=== PATIENT | male | born 1965 | race Caucasian/White ===

== ENCOUNTER 2024-05-29 13:19 | Inpatient (IN) | payer MEDICAID ==
[2024-05-29] VITALS (8 sets, daily range): BP systolic 122–141; BP diastolic 83–95; TEMP 97.6–97.7; O2SAT 95–100
[~2024-05-29] VITALS: Ht 175.3 cm; Wt 68.9 kg
[2024-05-29] MEDS ORDERED: IPRATROPIUM NEB FS 0.5 MG/2.5 ML AMPUL.NEB ONE (13:31)
[2024-05-29] MEDS ORDERED: ALBUTEROL FS 2.5 MG/3 ML VIAL.NEB ONE (13:31)
[2024-05-29] MEDS ORDERED: methylPREDNISolone SOD SUCC 125 MG/2ML VIAL ONE (13:33)
[2024-05-29] MEDS: methylPREDNISolone SOD SUCC 125 MG/2ML VIAL IV ONE (13:35)
[2024-05-29] MEDS: ALBUTEROL FS 2.5 MG/3 ML VIAL.NEB CONTNEB ONE (13:36)
[2024-05-29] MEDS: IPRATROPIUM NEB FS 0.5 MG/2.5 ML AMPUL.NEB NEB ONE (13:36)
[2024-05-29 13:48] LABS: BASOPHILS % (AUTO) 0.6 % (0.0-2.0); EOSINOPHILS # (AUTO) 0.3 K/uL (0.0-0.7); EOSINOPHILS % (AUTO) 3.3 % (0.0-6.0); HEMATOCRIT 41 % (39-51); HEMOGLOBIN 13.8 g/dL (13.5-17.5); LYMPHOCYTES # (AUTO) 0.4 K/uL (0.8-4.8); LYMPHOCYTES % (AUTO) 4.5 % (20.0-44.0); MEAN CORPUSCULAR HEMOGLOBIN 31 PG (26.0-33.0); MEAN CORPUSCULAR HGB CONC 34 g/dl (31.0-36.0); MEAN CORPUSCULAR VOLUME 90 fL (80-96); MONOCYTES # (AUTO) 0.8 K/uL (0.1-1.30); MONOCYTES % (AUTO) 9.6 % (2.0-12.0); NEUTROPHILS # (AUTO) 7.1 K/uL (1.8-8.9); PLATELET COUNT (AUTO) 185 K/uL (150-450); RED CELL DISTRIBUTION WIDTH 17.6 % (11.5-15.0); WHITE BLOOD COUNT (AUTO) 8.7 K/uL (4.3-11.0)
[2024-05-29 13:54] LABS: CALCIUM, SERUM 9.1 mg/dL (8.5-10.1); CREATININE 1.3 mg/dL (0.6-1.3); POTASSIUM 4.2 mmol/L (3.5-5.1)
[2024-05-29] MEDS: HYDROMORPHONE 1 MG/1 ML DISP.SYRIN IV ONE (15:00)
[2024-05-29] MEDS: FUROSEMIDE 40 MG/4 ML VIAL IV ONE (15:00)
[2024-05-29] MEDS ORDERED: LORAZEPAM 0.5 MG TABLET ONE (15:01)
[2024-05-29] MEDS: LORAZEPAM 1 MG TABLET PO ONE (15:02)
[2024-05-29] MEDS ORDERED: HYDR4TAB57 PO (15:39)
[2024-05-29] MEDS ORDERED: METO50TA16 PO (15:39)
[2024-05-29] MEDS ORDERED: THC GUMMIES PO (15:39)
[2024-05-29] MEDS ORDERED: ATOR20TA PO (15:39)
[2024-05-29] MEDS ORDERED: TRAZ-252 PO (15:39)
[2024-05-29] MEDS ORDERED: ONDA4TAB11 PO (15:39)
[2024-05-29] MEDS ORDERED: ACET650T10 PO (15:39)
[2024-05-29] MEDS ORDERED: AMIO400T5 PO (15:39)
[2024-05-29] MEDS ORDERED: ALBU18HF2 IH (15:39)
[2024-05-29] MEDS ORDERED: FURO-144 PO (15:39)
[2024-05-29] MEDS ORDERED: LEVALBUTEROL HCL NEB 1.25 MG/0.5 ML VIAL.NEB NEB PRN (18:00)
[2024-05-29] MEDS ORDERED: ONDANSETRON HCL/PF 4 MG/2 ML VIAL IVP PRN (18:00)
[2024-05-29] MEDS ORDERED: ALBUTEROL SULFATE 8 GM HFA.AER.AD IH PRN (18:00)
[2024-05-29] MEDS: METOPROLOL TARTRATE 50 MG TABLET PO SCH (18:01)
[2024-05-29] MEDS: AMIODARONE HCL 200 MG TABLET PO SCH (18:01)
[2024-05-29] MEDS: HYDROMORPHONE HCL 2 MG TABLET PO PRN (18:02)
[2024-05-29] MEDS: ENOXAPARIN SODIUM 40 MG/0.4 ML DISP.SYRIN SQ SCH (18:06)
[2024-05-29] MEDS: IPRATROPIUM NEB FS 0.5 MG/2.5 ML AMPUL.NEB NEB SCH (20:27)
[2024-05-29] MEDS: methylPREDNISolone SOD SUCC 40 MG/ML VIAL IV SCH (21:21)
[2024-05-29] MEDS: ATORVASTATIN 10 MG TABLET PO SCH (21:22)
[2024-05-29] MEDS: TRAZODONE 50 MG TABLET PO SCH (21:22)
[2024-05-30] VITALS (19 sets, daily range): BP systolic 101–134; BP diastolic 43–81; TEMP 97.7–98.9; O2SAT 94–100
[2024-05-30] MEDS: ACETAMINOPHEN 325 MG TABLET PO PRN (01:27)
[2024-05-30] MEDS: ONDANSETRON 4 MG TAB.RAPDIS PO PRN (01:30)
[2024-05-30 07:02] LABS: HEMATOCRIT 38 % (39-51); HEMOGLOBIN 12.8 g/dL (13.5-17.5); LYMPHOCYTES # (AUTO) 0.2 K/uL (0.8-4.8); LYMPHOCYTES % (AUTO) 2.9 % (20.0-44.0); MEAN CORPUSCULAR HEMOGLOBIN 31 PG (26.0-33.0); MEAN CORPUSCULAR HGB CONC 34 g/dl (31.0-36.0); MEAN CORPUSCULAR VOLUME 90 fL (80-96); MONOCYTES # (AUTO) 0.2 K/uL (0.1-1.30); NEUTROPHILS # (AUTO) 7.2 K/uL (1.8-8.9); NEUTROPHILS % (AUTO) 94.1 % (43.0-81.0); PLATELET COUNT (AUTO) 187 K/uL (150-450); RED BLOOD CELL COUNT(AUTO) 4.17 MIL/uL (4.5-6.0); RED CELL DISTRIBUTION WIDTH 17.3 % (11.5-15.0); WHITE BLOOD COUNT (AUTO) 7.6 K/uL (4.3-11.0)
[2024-05-30 07:36] LABS: CALCIUM, SERUM 8.9 mg/dL (8.5-10.1); CREATININE 1.6 mg/dL (0.6-1.3); MAGNESIUM 2.1 mg/dL (1.8-2.4); PHOSPHORUS 4.9 mg/dL (2.5-4.9); POTASSIUM 4.5 mmol/L (3.5-5.1)
[2024-05-30 09:38] LABS: CHOLESTEROL 165 mg/dL (<200); HDL CHOLESTEROL 68 mg/dL (40-60); LDL 84 mg/dL (0-99); TRIGLYCERIDES 64 mg/dL (30-150)
[2024-05-30] MEDS: POTASSIUM CHLORIDE 20 MEQ TAB.PRT.SR PO SCH (10:21)
[2024-05-30] MEDS: FUROSEMIDE 40 MG/4 ML VIAL IV SCH (10:21)
[2024-05-30] MEDS: APIXABAN 5 MG TABLET PO SCH (10:22)
[2024-05-30] MEDS: CALCIUM CARBONATE 500 MG TAB.CHEW PO SCH (14:28)
[2024-05-30] MEDS: LEVALBUTEROL HCL NEB 1.25 MG/0.5 ML VIAL.NEB NEB SCH (14:40)
[2024-05-30] MEDS: LORAZEPAM 1 MG TABLET PO PRN (15:16)
[2024-05-31] VITALS (21 sets, daily range): BP systolic 104–138; BP diastolic 69–105; TEMP 97.7–98.4; O2SAT 92–100
[2024-05-31 06:20] LABS: BASOPHILS % (AUTO) 0.1 % (0.0-2.0); HEMATOCRIT 38 % (39-51); HEMOGLOBIN 12.7 g/dL (13.5-17.5); LYMPHOCYTES # (AUTO) 0.3 K/uL (0.8-4.8); LYMPHOCYTES % (AUTO) 2.4 % (20.0-44.0); MEAN CORPUSCULAR HEMOGLOBIN 30 PG (26.0-33.0); MEAN CORPUSCULAR HGB CONC 33 g/dl (31.0-36.0); MEAN CORPUSCULAR VOLUME 90 fL (80-96); MONOCYTES # (AUTO) 0.8 K/uL (0.1-1.30); NEUTROPHILS # (AUTO) 12.9 K/uL (1.8-8.9); NEUTROPHILS % (AUTO) 91.5 % (43.0-81.0); PLATELET COUNT (AUTO) 187 K/uL (150-450); RED BLOOD CELL COUNT(AUTO) 4.24 MIL/uL (4.5-6.0); RED CELL DISTRIBUTION WIDTH 17.9 % (11.5-15.0); WHITE BLOOD COUNT (AUTO) 14.1 K/uL (4.3-11.0)
[2024-05-31 06:39] LABS: ALBUMIN 3.1 g/dL (3.4-5.0); BILIRUBIN,TOTAL 0.8 mg/dL (0.2-1.0); CALCIUM, SERUM 9.6 mg/dL (8.5-10.1); CREATININE 1.5 mg/dL (0.6-1.3); MAGNESIUM 2.6 mg/dL (1.8-2.4); PHOSPHORUS 4.9 mg/dL (2.5-4.9); POTASSIUM 4.4 mmol/L (3.5-5.1); TOTAL PROTEIN, SERUM 6.7 g/dL (6.4-8.2)
[2024-05-31] MEDS: DILTIAZEM HCL CD 240 MG PO SCH (11:22)
[2024-05-31] MEDS: methylPREDNISolone SOD SUCC 40 MG/ML VIAL IV SCH (12:32)
[2024-05-31 16:01] LABS: APPEARANCE,URINE CLEAR (CLEAR); BILIRUBIN,URINE NEGATIVE (NEGATIVE); BLOOD, URINE NEGATIVE Ery/uL (NEGATIVE); COLOR,URINE YELLOW (YELLOW); KETONES,URINE NEGATIVE (NEGATIVE); LEUKOCYTE ESTERASE ,URINE NEGATIVE (NEGATIVE); NITRITE, URINE NEGATIVE (NEGATIVE); PROTEIN,URINE NEGATIVE (NEGATIVE); UGLUCOSE NEGATIVE (NEGATIVE)
[2024-05-31 16:07] LABS: URINE TOTAL PROTEIN 11.8 mg/dL (0-11.9)
[2024-05-31 16:46] LABS: EOSINOPHIL,URINE None Seen
[2024-05-31] MEDS: SULFAMETH/TRIMETH 800/160 MG 1 UDTAB TABLET PO SCH (17:43)
[2024-05-31] MEDS: MAG HYDROX/AL HYDROX/SIMETH 30 ML UDC PO PRN (17:56)
[2024-05-31] MEDS: LORAZEPAM 1 MG TABLET PO PRN (18:06)
[2024-05-31] MEDS: IPRATROPIUM NEB FS 0.5 MG/2.5 ML AMPUL.NEB NEB PRN (22:04)
[2024-06-01] VITALS (17 sets, daily range): BP systolic 102–133; BP diastolic 66–99; TEMP 97.9–98.1; O2SAT 87–99
[2024-06-01 07:34] LABS: HEMATOCRIT 37 % (39-51); HEMOGLOBIN 12.3 g/dL (13.5-17.5); LYMPHOCYTES # (AUTO) 0.2 K/uL (0.8-4.8); LYMPHOCYTES % (AUTO) 1.5 % (20.0-44.0); MEAN CORPUSCULAR HEMOGLOBIN 30 PG (26.0-33.0); MEAN CORPUSCULAR HGB CONC 33 g/dl (31.0-36.0); MEAN CORPUSCULAR VOLUME 91 fL (80-96); MONOCYTES # (AUTO) 0.6 K/uL (0.1-1.30); MONOCYTES % (AUTO) 4.6 % (2.0-12.0); NEUTROPHILS # (AUTO) 12.1 K/uL (1.8-8.9); NEUTROPHILS % (AUTO) 93.9 % (43.0-81.0); PLATELET COUNT (AUTO) 188 K/uL (150-450); RED BLOOD CELL COUNT(AUTO) 4.08 MIL/uL (4.5-6.0); RED CELL DISTRIBUTION WIDTH 18.1 % (11.5-15.0); WHITE BLOOD COUNT (AUTO) 12.9 K/uL (4.3-11.0)
[2024-06-01 10:44] LABS: ALBUMIN 3.1 g/dL (3.4-5.0); BILIRUBIN,TOTAL 0.6 mg/dL (0.2-1.0); CREATININE 1.4 mg/dL (0.6-1.3); PHOSPHORUS 3.2 mg/dL (2.5-4.9); POTASSIUM 4.4 mmol/L (3.5-5.1); TOTAL PROTEIN, SERUM 6.5 g/dL (6.4-8.2)
[2024-06-01] MEDS ORDERED: HYDR-3972 PO (12:00)
[2024-06-01] MEDS ORDERED: METH4TAB3 PO (12:00)
[2024-06-01] MEDS ORDERED: DILT-3 PO (12:00)
[2024-06-01] MEDS ORDERED: APIX5TAB PO (12:00)
[2024-06-01] MEDS: VANCOMYCIN 1 GM in IV D5W 250 ML IV ONE (14:23)
[2024-06-02] VITALS (20 sets, daily range): BP systolic 112–133; BP diastolic 84–110; TEMP 97.7–98; O2SAT 84–100
[2024-06-02] MEDS: VANCOMYCIN 750 MG in IV D5W 250 ML IV SCH (02:37)
[2024-06-02 06:07] LABS: PTH, INTACT 36 pg/mL (15-65)
[2024-06-02 06:57] LABS: CALCIUM, SERUM 8.8 mg/dL (8.5-10.1); CREATININE 1.1 mg/dL (0.6-1.3); POTASSIUM 5.1 mmol/L (3.5-5.1)
[2024-06-02] MEDS: ALBUTEROL HALF STRENGTH 1.25 MG/3 ML VIAL.NEB NEB PRN (10:43)
[2024-06-02] MEDS: VANCOMYCIN 1 GM in IV D5W 250 ML IV SCH (13:26)
[2024-06-02 14:11] LABS: *SPE A/G RATIO 1.3 (0.7-1.7); *SPE ALBUMIN 3.4 g/dL (2.9-4.4); *SPE ALPHA-1-GLOBULIN 0.3 g/dL (0.0-0.4); *SPE ALPHA-2-GLOBULIN 0.9 g/dL (0.4-1.0); *SPE BETA GLOBULIN 0.9 g/dL (0.7-1.3); *SPE GLOBULIN, TOTAL 2.7 g/dL (2.2-3.9); *SPE M-SPIKE Not Observed g/dL (Not Observed); *SPE PROTEIN TOTAL 6.1 g/dL (6.0-8.5); *SPEGAMMA GLOBULIN 0.6 g/dL (0.4-1.8)
[2024-06-03] VITALS (22 sets, daily range): BP systolic 120–125; BP diastolic 89–96; TEMP 98–98.2; O2SAT 91–100
[2024-06-03 07:35] LABS: CALCIUM, SERUM 8.9 mg/dL (8.5-10.1); CREATININE 1.5 mg/dL (0.6-1.3); POTASSIUM 5.6 mmol/L (3.5-5.1)
[2024-06-03] MEDS: AMIODARONE HCL 200 MG TABLET PO SCH (09:04)
[2024-06-03] MEDS: SODIUM POLYSTYRENE SULFONATE 15 G/60 ML BOTTLE PO ONE (12:12)
[2024-06-03] MEDS: INSULIN REGULAR, HUMAN 100 UNIT/ML 3 ML VIAL IV ONE (12:13)
[2024-06-03] MEDS: DEXTROSE 50%-WATER 50 ML DISP.SYRIN IVP ONE (12:15)
[2024-06-03 18:54] LABS: CALCIUM, SERUM 8.2 mg/dL (8.5-10.1); CREATININE 1.2 mg/dL (0.6-1.3); POTASSIUM 5.1 mmol/L (3.5-5.1)
[2024-06-04] VITALS (7 sets, daily range): BP systolic 118–143; BP diastolic 99–103; TEMP 97.3–98.1; O2SAT 90–100
[2024-06-04 07:24] LABS: CALCIUM, SERUM 8.4 mg/dL (8.5-10.1); POTASSIUM 4.8 mmol/L (3.5-5.1)
[2024-06-04] MEDS ORDERED: SULF1TAB48 PO (13:13)
== END 2024-06-04 12:59 | disposition home or self-care (01) | DRG 133 ==
LOC: ER 13:27 → TELE1 15:23 → MEDSG1 06-01 08:12
PROVIDERS: ADMIT Nurse Practitioner Acute Care; ATTEND Nurse Practitioner Acute Care
DX: J96.01 Acute respiratory failure with hypoxia (principal); N17.0 Acute kidney failure with tubular necrosis; I50.31 Acute diastolic (congestive) heart failure; J15.9 Unspecified bacterial pneumonia; E87.3 Alkalosis; I13.0 Hypertensive heart and chronic kidney disease with heart failure and stage 1 through stage 4 chronic kidney disease, or unspecified chronic kidney disease; E87.1 Hypo-osmolality and hyponatremia; I48.20 Chronic atrial fibrillation, unspecified; J45.901 Unspecified asthma with (acute) exacerbation; J90 Pleural effusion, not elsewhere classified; N18.9 Chronic kidney disease, unspecified; D64.9 Anemia, unspecified; E78.5 Hyperlipidemia, unspecified; E87.5 Hyperkalemia; G89.4 Chronic pain syndrome; I50.33 Acute on chronic diastolic (congestive) heart failure; J98.4 Other disorders of lung; Z86.73 Personal history of transient ischemic attack (TIA), and cerebral infarction without residual deficits; Z87.891 Personal history of nicotine dependence; Z88.0 Allergy status to penicillin; Z20.822 Contact with and (suspected) exposure to COVID-19; Z79.01 Long term (current) use of anticoagulants; Z86.14 Personal history of Methicillin resistant Staphylococcus aureus infection
CPT/HCPCS: 36415; 71045-TC; 71250-TC; 76770-TC; 80048-TC; 80053-TC; 80061-TC; 80202-TC; 82550-TC; 82570-TC; 82962-TC; 83735-TC; 83880; 83970; 84100-TC; 84155; 84165; 84300-TC; 84484-TC; 85025-TC; 87040-TC; 93307-TC; 94761-TC; 94762-TC; 94799-TC; A4223; G0378; J1170; J1650; J1815; J1940; J2919; J3370; J3371; J7050; J7060; Q0162